=== PATIENT | male | born 1935 | race Two or more races ===

== ENCOUNTER 2021-06-09 15:06 | Inpatient (IN) | payer MEDICARE, OTHER ==
[~2021-06-09] VITALS: Ht 177.8 cm; Wt 64.1 kg
[~2021-06-09 15:06] MED LIST: CEFAZOLIN 1 G VIAL ONE; LIDOCAINE-MPF 2% 5 ML VIAL ONE; PROPOFOL 200 MG/20 ML BOTTLE ONE
[2021-06-09] MEDS ORDERED: IV NORMAL SALINE 500 ML BAG IV ONE (15:45)
[2021-06-09 16:01] LABS: HEMATOCRIT 53.7 % (36.7-47.1); MEAN CORPUSCULAR VOLUME 85.8 fL (73.0-96.2); PLATELET COUNT (AUTO) 233 K/uL (152-348)
[2021-06-09 16:22] LABS: ALANINE AMINOTRANSFERASE 13 U/L (16-63); ALKALINE PHOSPHATASE 83 U/L (50-136); ASPARTATE AMINOTRANSFERASE 6 U/L (15-37); BILIRUBIN,DIRECT 0.1 mg/dL (0.0-0.2); BILIRUBIN,TOTAL 0.4 mg/dL (0.2-1.0); CARBON DIOXIDE 19 mmol/L (21-32); CREATININE 6.9 mg/dL (0.6-1.3); GLUCOSE 227 mg/dL (74-106); TOTAL PROTEIN, SERUM 8.5 g/dL (6.4-8.2)
--- NOTE | 2021-06-09 16:26 | NUR ---
Per provider order, stopped NS fluids and changed to D5W @ 30mL/hr. Pt taken for CT scan via gurney by tech
[2021-06-09 16:28] LABS: CHLORIDE 133 mmol/L (98-107); UREA NITROGEN, BLOOD 191 mg/dL (7-18)
[2021-06-09] MEDS ORDERED: IV D5W 1000ML 1,000 ML IV PRN (16:30)
[2021-06-09] MEDS ORDERED: IV NORMAL SALINE 1000 ML BAG IV ONE (16:30)
[2021-06-09 17:39] LABS: *BILIRUBIN,URIN 1+ (NEGATIVE); *BLOOD, URINE 2+ (NEGATIVE); *CLARITY,URINE TURBID (CLEAR); *COLOR,URINE YELLOW (YELLOW); *KETONES,URINE 1+ (NEGATIVE); *UROBILINOGEN,URINE 0.2 E.U./dl (NORMAL); LEUKOCYTE ESTERASE ,URINE 3+ (NEGATIVE); NITRITE, URINE NEGATIVE (NEGATIVE); UGLUCOSE NEGATIVE (NEGATIVE)
--- NOTE | 2021-06-09 19:06 | NUR ---
Spoke with daughter, Juan Carlos. Gave update in status. Daughter agrees to pt's need to admit. Will give report for CCU bed.
--- NOTE | 2021-06-09 19:25 | NUR ---
Report given to AUDRA Ellis for pt transport to CCU bed 1. Will transport pt via [facility].
[2021-06-09 20:00] VITALS: BP 113/65
--- NOTE | 2021-06-09 20:00 | NUR ---
Received report from AUDRA Ferrell. Patient transported from ED and admitted to ICU-1 via gurney, without any incident and was transferred to hospital bed via draw sheet method. Patient came in with the Dx of Severe hypernatremia; awake, grimaces, responsive to stimuli. placed on bedside monitor, NSR, HR=98. No signs of pain nor distress noted. Placed on oxygen @ 2LPM, O2 sat 94%. LFA 20G patent and flushed with ongoing D5W @ 30mls/hr. Body assessment done. Belongings list checked and placed to chart. Belongings placed to belonging bag. Marroquin catheter draining well to gravity. Will continue to monitor closely. Addendum: 06/10/21 at 0017 by Rhonda Dowell RN Photos taken and placed to chart.
[2021-06-09 21:00] VITALS: BP 98/43
--- NOTE | 2021-06-09 21:00 | NUR ---
Daughter (Juan Carlos) called, report given.
--- NOTE | 2021-06-09 21:04 | NUR ---
I just charted the patient off the board
[2021-06-09] MEDS: IV D5W 1000ML 1,000 ML IV SCH (21:45)
[2021-06-09] MEDS: HEPARIN SODIUM,PORCINE 5,000 UNITS/ML VIAL SQ SCH (21:46)
[2021-06-09 22:00] VITALS: BP 113/60
--- NOTE | 2021-06-09 22:00 | NUR ---
Patient had a large BM, bed bath given, linen changed.
[2021-06-09] MEDS ORDERED: CEFTRIAXONE 1 G VIAL ONE (22:10)
[2021-06-09] MEDS ORDERED: ONDANSETRON 4 MG/2 ML VIAL IV PRN (22:30)
[2021-06-09] MEDS ORDERED: ACETAMINOPHEN 650 MG SUPP.RECT RC PRN (22:30)
[2021-06-09] MEDS: CEFTRIAXONE 1 G in IV DEXTROSE 5% 50 ML IV SCH (22:34)
[2021-06-09 23:00] VITALS: BP 88/59
[2021-06-09 23:23] LABS: BACTERIA,URINE MANY /HPF (NONE SEEN); RBC,URINE 20-50 /HPF (0-3); SQUAMOUS EPITHELIAL CELL,UR MODERATE /HPF (NONE SEEN); WBC,URINE TNTC /HPF (0-3)
[2021-06-09 23:46] LABS: CARBON DIOXIDE 17 mmol/L (21-32); CREATININE 7.2 mg/dL (0.6-1.3); GLUCOSE 266 mg/dL (74-106); POTASSIUM 5.2 mmol/L (3.5-5.1)
[2021-06-10] VITALS (24 sets, daily range): BP systolic 81–131; BP diastolic 40–76
[2021-06-10 00:02] LABS: CHLORIDE 132 mmol/L (98-107)
[2021-06-10 00:04] LABS: UREA NITROGEN, BLOOD 192 mg/dL (7-18)
--- NOTE | 2021-06-10 00:15 | NUR ---
Lab called and spoke with Bon for critical lab results. Called [facility] and spoke with Jose Patel DNP, report given, with no new orders.
[2021-06-10 06:18] LABS: HEMATOCRIT 56.4 % (36.7-47.1); MEAN CORPUSCULAR HEMOGLOBIN 28.2 uug (23.8-33.4); MEAN CORPUSCULAR VOLUME 88.1 fL (73.0-96.2); PLATELET COUNT (AUTO) 187 K/uL (152-348)
[2021-06-10 06:32] LABS: CARBON DIOXIDE 20 mmol/L (21-32); CHOLESTEROL 140 mg/dL (<200); CREATININE 6.7 mg/dL (0.6-1.3); HDL CHOLESTEROL 34 mg/dL (40-60); PHOSPHOROUS 5.7 mg/dL (2.5-4.9); POTASSIUM 4.5 mmol/L (3.5-5.1); TRIGLYCERIDES 251 MG/DL (30-150)
[2021-06-10 06:39] LABS: CHLORIDE 129 mmol/L (98-107); GLUCOSE 351 mg/dL (74-106)
[2021-06-10 06:40] LABS: UREA NITROGEN, BLOOD 193 mg/dL (7-18)
[2021-06-10] MEDS ORDERED: BLOOD SUGAR DIAGNOSTIC 1 EACH STRIP VI SCH ×2 (06:45→12:00)
--- NOTE | 2021-06-10 06:45 | NUR ---
Lab called and spoke with Bon for critical lab results. Called [facility] and spoke with Jose Patel DNP, report given, with new orders accucheck and insulin sliding scale. Noted and carried out.
--- NOTE | 2021-06-10 06:46 | NUR ---
Left patient asleep, resting comfortably. No signs of acute distress. VSS. LFA 20G with ongoing D5W @75mls/hr. Marroquin catheter draining well to gravity. Endorsed to next shift for continuity of care.
[2021-06-10] MEDS ORDERED: DEXTROSE 50% 50 ML DISP.SYRIN IV PRN ×2 (07:00→13:00)
[2021-06-10] MEDS ORDERED: INSULIN REGULAR, HUMAN 300 UNIT/3 ML VIAL SQ PRN (07:00)
--- NOTE | 2021-06-10 07:05 | NUR ---
Received pt. in bed lethargic responding only to painful stimuli by gargling and screaming. On nasal canula 2 liter wean off trial done at this time pt. with saturation of 100% on RA. no tachypnea. Hemodynamically stable on sinus rhythm with sbp above 90. Will continue to monitor.
[2021-06-10] MEDS: PANTOPRAZOLE SODIUM 40 MG VIAL IV SCH (08:18)
[2021-06-10] MEDS: HEPARIN SODIUM,PORCINE 5,000 UNITS/ML VIAL SQ SCH (08:24)
[2021-06-10] MEDS: IV D5W 1000ML 1,000 ML IV SCH (11:17)
[2021-06-10] MEDS ORDERED: ASPI-1420 PO (12:08)
[2021-06-10] MEDS ORDERED: DONE10TA44 PO (12:09)
[2021-06-10] MEDS ORDERED: PANT40TA49 PO (12:09)
[2021-06-10] MEDS ORDERED: MEMA10TA PO (12:10)
[2021-06-10] MEDS ORDERED: QUET25TA PO (12:11)
[2021-06-10] MEDS ORDERED: CLOP75TA15 PO (12:11)
[2021-06-10] MEDS ORDERED: FINA5TAB11 PO (12:12)
[2021-06-10] MEDS ORDERED: METO25TA6 PO (12:13)
[2021-06-10] MEDS ORDERED: ESCI5TAB PO (12:14)
[2021-06-10] MEDS ORDERED: TAMS-3 PO (12:15)
[2021-06-10] MEDS ORDERED: MIRA25TA PO (12:15)
[2021-06-10] MEDS ORDERED: ERGO500040 PO (12:17)
[2021-06-10] MEDS ORDERED: ALPR0.5T8 PO (12:18)
[2021-06-10] MEDS ORDERED: LINA72CA PO (12:18)
[2021-06-10] MEDS ORDERED: METF-494 PO (12:19)
[2021-06-10] MEDS ORDERED: LINA5TAB PO (12:20)
[2021-06-10] MEDS ORDERED: ROSU10TA2 GT (12:20)
[2021-06-10 12:38] LABS: *BILIRUBIN,URIN NEGATIVE (NEGATIVE); *BLOOD, URINE 3+ (NEGATIVE); *CLARITY,URINE TURBID (CLEAR); *COLOR,URINE YELLOW (YELLOW); *KETONES,URINE TRACE (NEGATIVE); *UROBILINOGEN,URINE 0.2 E.U./dl (NORMAL); LEUKOCYTE ESTERASE ,URINE 3+ (NEGATIVE); NITRITE, URINE POSITIVE (NEGATIVE); UGLUCOSE NEGATIVE (NEGATIVE)
[2021-06-10 13:26] LABS: CARBON DIOXIDE 19 mmol/L (21-32); CREATININE 5.8 mg/dL (0.6-1.3); POTASSIUM 3.5 mmol/L (3.5-5.1)
[2021-06-10 13:39] LABS: CHLORIDE 128 mmol/L (98-107); GLUCOSE 418 mg/dL (74-106); UREA NITROGEN, BLOOD 170 mg/dL (7-18)
[2021-06-10 16:20] LABS: *CREATININE,URINE 147.9 mg/dL (30-125); *URINE TOTAL PROTEIN RANDOM 384.2 mg/dL (<150/24HR)
--- NOTE | 2021-06-10 16:45 | NUR ---
Patient seen by attending Addy Marin.
[2021-06-10] MEDS: BLOOD SUGAR DIAGNOSTIC 1 EACH STRIP VI SCH (17:15)
[2021-06-10] MEDS: INSULIN REGULAR, HUMAN 300 UNIT/3 ML VIAL SQ PRN (17:17)
--- NOTE | 2021-06-10 17:45 | NUR ---
NG tube inserted to right left nare KUB for placement ordered.
[2021-06-10 18:56] LABS: BACTERIA,URINE MANY /HPF (NONE SEEN); RBC,URINE 20-50 /HPF (0-3); WBC,URINE 20-50 /HPF (0-3)
[2021-06-10 18:57] LABS: SQUAMOUS EPITHELIAL CELL,UR FEW /HPF (NONE SEEN)
--- NOTE | 2021-06-10 19:30 | NUR ---
Report received. Spoke to radiology re: abdominal xray for NGT placement; awaiting result. Patient admitted 06/09/2021 DX: Severe hypernatremia. Doesn't open eyes to name, aphasic, moans and groans but no appropriate responses to questions. Withdraws extremities to pain, mildly rigid. EKG: SR with BBB and rare PACs. On room air; o2 sats 100%. NAD noted.
--- NOTE | 2021-06-10 20:20 | NUR ---
Kristie Donato REFRIGERATOR GLAZIER notified of X ray result re: NGT placement. Okay to use.
--- NOTE | 2021-06-10 20:30 | NUR ---
Son visited; updated of patient's condition.
[2021-06-10] MEDS: ATORVASTATIN 20 MG TABLET PO SCH (21:04)
[2021-06-10] MEDS: TAMSULOSIN HCL 0.4 MG CAP.SR.24H PO SCH (21:04)
[2021-06-10] MEDS: FINASTERIDE 5 MG TABLET PO SCH (21:05)
[2021-06-10] MEDS: CLOPIDOGREL 75 MG TABLET PO SCH (21:18)
[2021-06-10] MEDS: CEFTRIAXONE 1 G in IV DEXTROSE 5% 50 ML IV SCH (21:19)
[2021-06-10] MEDS ORDERED: DONEPEZIL 5 MG TABLET ONE (21:45)
[2021-06-10] MEDS ORDERED: MEMANTINE HCL 10 MG TABLET ONE (21:59)
[2021-06-10] MEDS: DONEPEZIL 10 MG TABLET PO SCH (22:05)
[2021-06-10] MEDS: MEMANTINE HCL 10 MG TABLET PO SCH (22:07)
[2021-06-11] VITALS (24 sets, daily range): BP systolic 89–120; BP diastolic 35–78
[2021-06-11] MEDS: IV D5W 1000ML 1,000 ML IV SCH ×3 (00:02→23:29)
[2021-06-11] MEDS: BLOOD SUGAR DIAGNOSTIC 1 EACH STRIP VI SCH ×5 (00:08→23:27)
[2021-06-11] MEDS: INSULIN REGULAR, HUMAN 300 UNIT/3 ML VIAL SQ PRN ×5 (00:09→23:27)
[2021-06-11 06:19] LABS: HEMATOCRIT 48.1 % (36.7-47.1); MEAN CORPUSCULAR HEMOGLOBIN 27.5 uug (23.8-33.4); MEAN CORPUSCULAR VOLUME 85.2 fL (73.0-96.2); PLATELET COUNT (AUTO) 179 K/uL (152-348)
--- NOTE | 2021-06-11 06:38 | NUR ---
VS stable. No neuro changes. Still no appropriate verbal responses. O2 saturations on room air 97-100%. Urine gygitj=212mw x 12H. Addendum: 06/11/21 at 0638 by RADHA BARNETT RN Amended: Links added.
[2021-06-11 06:41] LABS: ALANINE AMINOTRANSFERASE 6 U/L (16-63); ALKALINE PHOSPHATASE 81 U/L (50-136); ASPARTATE AMINOTRANSFERASE 7 U/L (15-37); BILIRUBIN,TOTAL 0.4 mg/dL (0.2-1.0); CARBON DIOXIDE 21 mmol/L (21-32); CHLORIDE 124 mmol/L (98-107); CREATINE KINASE, TOTAL 97 U/L (39-308); CREATININE 5.8 mg/dL (0.6-1.3); GLUCOSE 295 mg/dL (74-106); MAGNESIUM 2.6 mg/dL (1.8-2.4); PHOSPHOROUS 4.8 mg/dL (2.5-4.9); POTASSIUM 3.7 mmol/L (3.5-5.1); TOTAL PROTEIN, SERUM 7.3 g/dL (6.4-8.2)
[2021-06-11 06:46] LABS: UREA NITROGEN, BLOOD 167 mg/dL (7-18)
--- NOTE | 2021-06-11 07:00 | NUR ---
Receive pt. lethargic responsive only to deep painful-stimuli. Hemodynamically stable Sinus rhythm on the monitor. sbp sustained with no need of vasopressors. On room air with saturation above 95%. no tachypnea or any other distress. IV line patent and fluid infusing. Will continue to monitor.
[2021-06-11 07:13] LABS: URIC ACID 12.3 mg/dL (3.5-7.2)
[2021-06-11] MEDS: DONEPEZIL 10 MG TABLET PO SCH (08:17)
[2021-06-11] MEDS: MEMANTINE HCL 10 MG TABLET PO SCH ×2 (08:17→17:25)
[2021-06-11] MEDS: ASPIRIN EC 81 MG TABLET.DR PO SCH (08:19)
[2021-06-11] MEDS: FINASTERIDE 5 MG TABLET PO SCH (08:19)
[2021-06-11] MEDS: PANTOPRAZOLE SODIUM 40 MG VIAL IV SCH (08:19)
[2021-06-11] MEDS: CLOPIDOGREL 75 MG TABLET PO SCH (08:19)
[2021-06-11] MEDS: TAMSULOSIN HCL 0.4 MG CAP.SR.24H PO SCH ×2 (08:19→17:27)
[2021-06-11 08:36] LABS: THYROID STIMULATING HORMONE 0.645 mIU/mL (0.358-3.740)
--- NOTE | 2021-06-11 13:18 | NUR ---
Attending Arnaldo in the unit to see and examine pt. report given orders received and implemented.
--- NOTE | 2021-06-11 19:00 | NUR ---
Received patient asleep, moans and groans, responsive to painful stimuli, does not open eyes to name. RA with O2 aky=692%. No signs of acute distress noted. NG tube patent, no gastric residual noted. LAC 20G patent and flushed with ongoing D5W @ 75mls/hr. No erythema bleeding or infiltration noted. Marroquin catheter draining well to gravity. Placed on 1st step mattress. Bed at lowest position, bed alarm on, siderails x2. Call light within reach. Will continue to monitor closely.
[2021-06-11] MEDS: ATORVASTATIN 20 MG TABLET PO SCH (21:01)
[2021-06-11] MEDS: CEFTRIAXONE 1 G in IV DEXTROSE 5% 50 ML IV SCH (21:02)
--- NOTE | 2021-06-11 22:30 | NUR ---
Midline insertion done c/o Duane BELTRE. Per Duane BELTRE, ok to use and draw from midline.
[2021-06-12] VITALS (16 sets, daily range): BP systolic 94–145; BP diastolic 42–89
[2021-06-12 05:11] LABS: CARBON DIOXIDE 22 mmol/L (21-32); CHLORIDE 116 mmol/L (98-107); CREATININE 4.6 mg/dL (0.6-1.3); GLUCOSE 258 mg/dL (74-106); MAGNESIUM 2.2 mg/dL (1.8-2.4); PHOSPHOROUS 4.2 mg/dL (2.5-4.9)
[2021-06-12 05:13] LABS: UREA NITROGEN, BLOOD 148 mg/dL (7-18)
[2021-06-12 05:19] LABS: HEMATOCRIT 40.3 % (36.7-47.1); MEAN CORPUSCULAR HEMOGLOBIN 27.7 uug (23.8-33.4); MEAN CORPUSCULAR VOLUME 83.8 fL (73.0-96.2); PLATELET COUNT (AUTO) 163 K/uL (152-348)
[2021-06-12] MEDS: BLOOD SUGAR DIAGNOSTIC 1 EACH STRIP VI SCH ×4 (06:14→23:11)
[2021-06-12] MEDS: INSULIN REGULAR, HUMAN 300 UNIT/3 ML VIAL SQ PRN ×4 (06:17→23:14)
--- NOTE | 2021-06-12 07:01 | NUR ---
Left patient asleep, arousable to name, guarded. NAD noted. On RA. BRYANNA ML with ongoing D5W @ 100mls/hr, LAC 20G SL. Marroquin catheter draining well to gravity. VSS. Endorsed to next shift nurse for continuity of care.
--- NOTE | 2021-06-12 07:31 | NUR ---
Received pt. in bed in deep sleep arousable only to deep painful stimuli. pt moaning and gargly unclear sound only. On room air with saturation of 100%. NSR with SBP within normal limits. Marroquin to gravity. ML BRYANNA patent. Will continue to monitor.
[2021-06-12] MEDS: PANTOPRAZOLE SODIUM 40 MG VIAL IV SCH (08:27)
[2021-06-12] MEDS: CLOPIDOGREL 75 MG TABLET PO SCH (08:27)
[2021-06-12] MEDS: ASPIRIN EC 81 MG TABLET.DR PO SCH (08:27)
[2021-06-12] MEDS: FINASTERIDE 5 MG TABLET PO SCH (08:27)
[2021-06-12] MEDS: TAMSULOSIN HCL 0.4 MG CAP.SR.24H PO SCH ×2 (08:27→17:50)
[2021-06-12] MEDS: DONEPEZIL 10 MG TABLET PO SCH (08:28)
[2021-06-12] MEDS: MEMANTINE HCL 5 MG TABLET PO SCH ×2 (08:31→17:50)
[2021-06-12] MEDS: IV D5W 1000ML 1,000 ML IV SCH (09:25)
[2021-06-12] MEDS: GLUCERNA 1.2 1000ML LIQUID GT PRN (10:50)
--- NOTE | 2021-06-12 12:03 | NUR ---
WOUND CARE CONSULT: PT PRESENTS WITH SACRAL DIMPLE AND RT HEEL INTACT DEEP TISSUE INJURY, PRESENT ON ADMISSION. RECOMMENDATIONS MADE FOR SKIN PROTECTION. DISCUSSED WITH NURSING STAFF. IN AGREEMENT WITH PLAN OF CARE. Addendum: 06/12/21 at 1204 by ERIN PROCTOR RN Amended: Links added.
[2021-06-12] MEDS ORDERED: DEXTROSE 50% 50 ML DISP.SYRIN IV PRN (14:00)
--- NOTE | 2021-06-12 14:10 | NUR ---
Attending VALENTIN Donato in the unit to see and examine pt. report given see order hx.
[2021-06-12 16:06] LABS: A/G RATIO 0.9 (0.7-1.7); ALPHA-1-GLOBULIN 0.3 g/dL (0.0-0.4); ALPHA-2-GLOBULIN 0.7 g/dL (0.4-1.0); BETA GLOBULIN 1.1 g/dL (0.7-1.3); GAMMA GLOBULIN 1.2 g/dL (0.4-1.8); GLOBULIN, TOTAL 3.3 g/dL (2.2-3.9); M-SPIKE Not Observed g/dL (Not Observed)
[2021-06-12] MEDS: ATORVASTATIN 20 MG TABLET PO SCH (20:20)
[2021-06-12] MEDS: CEFAZOLIN 1 G in IV DEXTROSE 5% 50 ML IV SCH (20:20)
[2021-06-13 00:03] VITALS: BP 109/57
[2021-06-13 04:09] VITALS: BP 111/76
[2021-06-13] MEDS: BLOOD SUGAR DIAGNOSTIC 1 EACH STRIP VI SCH ×3 (05:27→17:26)
[2021-06-13] MEDS: INSULIN REGULAR, HUMAN 300 UNIT/3 ML VIAL SQ PRN ×3 (05:29→17:35)
--- NOTE | 2021-06-13 06:17 | NUR ---
END OF SHIFT REPORT patient now more alert; tolerated NGT feeding; no residual; accucheck as charted; son at bedside last night; updates given; incontinence care rendered; safety maintained. continue plan of care.
[2021-06-13 06:41] LABS: HEMATOCRIT 39.1 % (36.7-47.1); MEAN CORPUSCULAR HEMOGLOBIN 27.6 uug (23.8-33.4); MEAN CORPUSCULAR VOLUME 82.4 fL (73.0-96.2); PLATELET COUNT (AUTO) 152 K/uL (152-348)
[2021-06-13 06:55] LABS: CARBON DIOXIDE 21 mmol/L (21-32); CHLORIDE 113 mmol/L (98-107); CREATININE 3.8 mg/dL (0.6-1.3); GLUCOSE 204 mg/dL (74-106); MAGNESIUM 2.1 mg/dL (1.8-2.4); PHOSPHOROUS 4.6 mg/dL (2.5-4.9); POTASSIUM 3.5 mmol/L (3.5-5.1)
--- NOTE | 2021-06-13 08:00 | NUR ---
Aspiration precaution implemented. Turn pt q 2 hrs implemented. F/c draining clear yellow urine . IV site intact. Call light is within reach.
[2021-06-13] MEDS: ASPIRIN EC 81 MG TABLET.DR PO SCH (09:08)
[2021-06-13] MEDS: FINASTERIDE 5 MG TABLET PO SCH (09:08)
[2021-06-13] MEDS: MEMANTINE HCL 5 MG TABLET PO SCH ×2 (09:08→17:26)
[2021-06-13] MEDS: TAMSULOSIN HCL 0.4 MG CAP.SR.24H PO SCH ×2 (09:08→17:26)
[2021-06-13] MEDS: CLOPIDOGREL 75 MG TABLET PO SCH (09:08)
[2021-06-13] MEDS: PANTOPRAZOLE SODIUM 40 MG VIAL IV SCH (09:08)
[2021-06-13] MEDS: DONEPEZIL 10 MG TABLET PO SCH (09:11)
[2021-06-13] MEDS: CEFAZOLIN 1 G in IV DEXTROSE 5% 50 ML IV SCH ×2 (09:11→20:50)
[2021-06-13 09:16] LABS: UREA NITROGEN, BLOOD 119 mg/dL (7-18)
--- NOTE | 2021-06-13 10:00 | NUR ---
Physical therapy saw patient. pt unable to participate in therapy.
[2021-06-13 12:00] VITALS: BP 115/52
[2021-06-13 16:00] VITALS: BP 100/55
--- NOTE | 2021-06-13 16:00 | NUR ---
Called gretta to get consent for EGD with PEG. Per gretta she doesnt want to have her father get the G-TUBe. emerald GARIBAY and GAVINO DENNIS notified of familys wishes.
--- NOTE | 2021-06-13 20:45 | NUR ---
PATIENT ASLEEP BUT AROUSABLE NO SOB NO CHEST PAIN, PATIENT ON TELE MONITOR SINUS RHYTHM AT THIS TIME, PATIENT ON NGT TOLERATE WELL NO RESIDUAL NOTED, CHECKED FOR PLACEMENT, PATIENT HAS NO CONGESTION NOTED, TURNED AND REPOSITION, NO S/S OF PAIN. CONT TO MONITOR.
[2021-06-13] MEDS: ATORVASTATIN 20 MG TABLET PO SCH (20:51)
[2021-06-13 20:58] VITALS: BP 99/58
--- NOTE | 2021-06-14 | NUR ---
PATIENT HAS AN ORDER FOR EGD, AND NPO AFTER MIDNIGHT. PATIENT HAS NO S/S OF PAIN OR DISCOMFORT, RENDERED GOOD ORAL CARE, CHAVEZ CATH PATENT DRAINING WELL, CONT TO MONITOR.
[2021-06-14 00:29] VITALS: BP 103/53
[2021-06-14] MEDS: BLOOD SUGAR DIAGNOSTIC 1 EACH STRIP VI SCH ×5 (00:51→23:55)
[2021-06-14] MEDS: INSULIN REGULAR, HUMAN 300 UNIT/3 ML VIAL SQ PRN ×5 (00:58→23:57)
[2021-06-14] MEDS: Z GUARD REMEDY PASTE 57 GM TUBE TOP PRN (00:58)
[2021-06-14 04:23] VITALS: BP 136/72
--- NOTE | 2021-06-14 05:49 | NUR ---
PATIENT EYES OPEN, NO SOB NO CHEST PAIN NOTED, TELE MONITOR SINUS RHYTHM, PATIENT ON NGT TOLERATE WELL NO RESIDUAL, NO CONGESTION, NO DIARRHEA NOTED, KEPT HOB ELEVATED, TURN AND REPOSITION, V/S STABLE, V/S STABLE
[2021-06-14] MEDS: PANTOPRAZOLE ORAL SUSPENSION 40 MG SUSPDR.PKT GT SCH (06:04)
[2021-06-14 07:19] LABS: HEMATOCRIT 37.2 % (36.7-47.1); MEAN CORPUSCULAR HEMOGLOBIN 27.8 uug (23.8-33.4); MEAN CORPUSCULAR VOLUME 82.1 fL (73.0-96.2); PLATELET COUNT (AUTO) 148 K/uL (152-348)
[2021-06-14 07:37] LABS: CARBON DIOXIDE 23 mmol/L (21-32); CHLORIDE 115 mmol/L (98-107); CREATININE 3.3 mg/dL (0.6-1.3); GLUCOSE 163 mg/dL (74-106); MAGNESIUM 2.1 mg/dL (1.8-2.4); PHOSPHOROUS 4.2 mg/dL (2.5-4.9); POTASSIUM 3.6 mmol/L (3.5-5.1)
[2021-06-14 07:40] LABS: UREA NITROGEN, BLOOD 110 mg/dL (7-18)
[2021-06-14] MEDS: CLOPIDOGREL 75 MG TABLET PO SCH (08:47)
[2021-06-14] MEDS: ASPIRIN EC 81 MG TABLET.DR PO SCH (08:47)
[2021-06-14] MEDS: DONEPEZIL 10 MG TABLET PO SCH (08:47)
[2021-06-14] MEDS: CEFAZOLIN 1 G in IV DEXTROSE 5% 50 ML IV SCH ×2 (08:47→21:35)
[2021-06-14] MEDS: MEMANTINE HCL 5 MG TABLET PO SCH ×2 (08:47→16:30)
[2021-06-14] MEDS: TAMSULOSIN HCL 0.4 MG CAP.SR.24H PO SCH ×2 (08:47→16:30)
[2021-06-14] MEDS: FINASTERIDE 5 MG TABLET PO SCH (09:32)
[2021-06-14] MEDS: GLUCERNA 1.2 1000ML LIQUID GT PRN (11:55)
--- NOTE | 2021-06-14 11:56 | NUR ---
informed Dr Schmitz regarding feeding, order to continue with feeding. PEG placement is still pending. Will continue to monitor. NGT intact, placement check.
[2021-06-14 12:00] VITALS: BP 120/65
[2021-06-14 15:44] VITALS: BP 112/72
[2021-06-14 20:00] VITALS: BP 98/59
[2021-06-14] MEDS: ATORVASTATIN 20 MG TABLET PO SCH (21:35)
[2021-06-15 04:00] VITALS: BP 108/67
[2021-06-15] MEDS: BLOOD SUGAR DIAGNOSTIC 1 EACH STRIP VI SCH ×3 (05:30→18:19)
[2021-06-15] MEDS: PANTOPRAZOLE ORAL SUSPENSION 40 MG SUSPDR.PKT GT SCH (05:30)
[2021-06-15] MEDS: INSULIN REGULAR, HUMAN 300 UNIT/3 ML VIAL SQ PRN ×2 (05:33→12:10)
--- NOTE | 2021-06-15 06:31 | NUR ---
Patient remained stable during the shift. No distress identified. No pain or discomfort noted. All due meds given, all needs attended. Kept call light within reach. oral care done. Safety measures maintained. Will endorse for continuity of care.
[2021-06-15 06:36] LABS: HEMATOCRIT 39.2 % (36.7-47.1); MEAN CORPUSCULAR HEMOGLOBIN 27.7 uug (23.8-33.4); MEAN CORPUSCULAR VOLUME 82.6 fL (73.0-96.2); PLATELET COUNT (AUTO) 178 K/uL (152-348)
[2021-06-15 07:05] LABS: CARBON DIOXIDE 23 mmol/L (21-32); CHLORIDE 116 mmol/L (98-107); CREATININE 2.9 mg/dL (0.6-1.3); GLUCOSE 239 mg/dL (74-106); MAGNESIUM 2.4 mg/dL (1.8-2.4); PHOSPHOROUS 3.1 mg/dL (2.5-4.9)
[2021-06-15 07:44] LABS: UREA NITROGEN, BLOOD 97 mg/dL (7-18)
[2021-06-15] MEDS: MEMANTINE HCL 5 MG TABLET PO SCH ×2 (09:14→17:36)
[2021-06-15] MEDS: FINASTERIDE 5 MG TABLET PO SCH (09:14)
[2021-06-15] MEDS: CEFAZOLIN 1 G in IV DEXTROSE 5% 50 ML IV SCH ×2 (09:14→20:22)
[2021-06-15] MEDS: DONEPEZIL 10 MG TABLET PO SCH (09:14)
[2021-06-15] MEDS: CLOPIDOGREL 75 MG TABLET PO SCH (09:15)
[2021-06-15] MEDS: ASPIRIN EC 81 MG TABLET.DR PO SCH (09:15)
[2021-06-15] MEDS: TAMSULOSIN HCL 0.4 MG CAP.SR.24H PO SCH ×2 (09:15→17:36)
[2021-06-15 11:48] VITALS: BP 142/76
[2021-06-15] MEDS: GLUCERNA 1.2 1000ML LIQUID GT PRN (13:23)
[2021-06-15 16:00] VITALS: BP 104/59
[2021-06-15 20:00] VITALS: BP 100/53
[2021-06-15] MEDS: ATORVASTATIN 20 MG TABLET PO SCH (20:22)
[2021-06-16] MEDS: INSULIN REGULAR, HUMAN 300 UNIT/3 ML VIAL SQ PRN ×3 (00:04→12:42)
[2021-06-16 04:00] VITALS: BP 104/68
[2021-06-16] MEDS: PANTOPRAZOLE ORAL SUSPENSION 40 MG SUSPDR.PKT GT SCH (06:17)
[2021-06-16] MEDS: BLOOD SUGAR DIAGNOSTIC 1 EACH STRIP VI SCH ×4 (06:26→17:42)
--- NOTE | 2021-06-16 06:59 | NUR ---
Pt remains AOx1. Has response to touch. Glucerna feeding through NG tube running at 50cc, no residual. 200cc of water flushed Q4 hours as ordered. No distress noted. Marroquin draining clear yellow urine. Safety and comfort provided. Will endorse to day shift.
[2021-06-16 07:03] LABS: HEMATOCRIT 35.6 % (36.7-47.1); MEAN CORPUSCULAR HEMOGLOBIN 27.8 uug (23.8-33.4); MEAN CORPUSCULAR VOLUME 82.4 fL (73.0-96.2); PLATELET COUNT (AUTO) 175 K/uL (152-348)
[2021-06-16 07:32] LABS: CARBON DIOXIDE 22 mmol/L (21-32); CHLORIDE 115 mmol/L (98-107); CREATININE 2.4 mg/dL (0.6-1.3); GLUCOSE 182 mg/dL (74-106); MAGNESIUM 2.1 mg/dL (1.8-2.4); PHOSPHOROUS 3.3 mg/dL (2.5-4.9); POTASSIUM 3.8 mmol/L (3.5-5.1)
[2021-06-16 07:35] LABS: UREA NITROGEN, BLOOD 80 mg/dL (7-18)
[2021-06-16] MEDS: CEFAZOLIN 1 G in IV DEXTROSE 5% 50 ML IV SCH ×2 (08:59→21:03)
[2021-06-16] MEDS: ASPIRIN EC 81 MG TABLET.DR PO SCH (09:00)
[2021-06-16] MEDS: MEMANTINE HCL 5 MG TABLET PO SCH ×2 (09:00→17:42)
[2021-06-16] MEDS: DONEPEZIL 10 MG TABLET PO SCH (09:00)
[2021-06-16] MEDS: TAMSULOSIN HCL 0.4 MG CAP.SR.24H PO SCH ×2 (09:00→17:42)
[2021-06-16] MEDS: FINASTERIDE 5 MG TABLET PO SCH (09:00)
[2021-06-16] MEDS: CLOPIDOGREL 75 MG TABLET PO SCH (09:01)
--- NOTE | 2021-06-16 10:49 | NUR ---
Social Work APS Report Protective Services Report (Intake ID [id number]) was submitted on 06/16/2021 at 10:47 AM. A copy has been placed in patient's chart.
[2021-06-16 12:22] VITALS: BP 109/64
--- NOTE | 2021-06-16 14:07 | NUR ---
Clinical Social Work Note SW consult was request for assistance with DPOA. SW did not meet with patient as patient is unresponsive. DENYS spoke with patients daughter Juan Carlos Fierro ([phone]) who stated that she was confused because she was not interested in setting up a DPOA. Juan Carlos stated that currently her father does not have a DPOA, but she is his legal guardian. Juan Carlos stated that she did not need assistance at the moment.
[2021-06-16 16:17] VITALS: BP 113/79
--- NOTE | 2021-06-16 16:25 | NUR ---
Pt resting in bed comfortably ,remains ALOX1.No SOB .On O2 at 2LPm via NC.HOB elevated.Aspiration precaution observed at all times.Continue on Glucerna feeding through NG tube running at 50cc, no residual. Tolerated well.200cc of water flushed Q4 hours as ordered. Midline on rt upper arm patent and intact.Marroquin draining well clear yellow urine.Will continue to monitor.
[2021-06-16 20:00] VITALS: BP 121/70
[2021-06-16] MEDS: ATORVASTATIN 20 MG TABLET PO SCH (21:03)
[2021-06-17] MEDS: BLOOD SUGAR DIAGNOSTIC 1 EACH STRIP VI SCH ×4 (00:25→18:08)
[2021-06-17] MEDS: INSULIN REGULAR, HUMAN 300 UNIT/3 ML VIAL SQ PRN ×4 (00:32→18:07)
[2021-06-17] MEDS: PANTOPRAZOLE ORAL SUSPENSION 40 MG SUSPDR.PKT GT SCH (06:12)
--- NOTE | 2021-06-17 07:15 | NUR ---
Received patient asleep in bed. On 2L O2 via NC. No signs of acute distress. NG tube on right nare, feeding running at 50cc/hr. Midline on BRYANNA patent and intact. Marroquin catheter draining clear, yellow urine. Will continue to monitor.
[2021-06-17 08:50] LABS: HEMATOCRIT 37.6 % (36.7-47.1); MEAN CORPUSCULAR VOLUME 82.6 fL (73.0-96.2); PLATELET COUNT (AUTO) 189 K/uL (152-348)
[2021-06-17] MEDS: ASPIRIN EC 81 MG TABLET.DR PO SCH (09:04)
[2021-06-17] MEDS: CLOPIDOGREL 75 MG TABLET PO SCH (09:04)
[2021-06-17] MEDS: DONEPEZIL 10 MG TABLET PO SCH (09:04)
[2021-06-17] MEDS: CEFAZOLIN 1 G in IV DEXTROSE 5% 50 ML IV SCH ×2 (09:04→20:57)
[2021-06-17] MEDS: MEMANTINE HCL 5 MG TABLET PO SCH ×2 (09:04→16:11)
[2021-06-17] MEDS: TAMSULOSIN HCL 0.4 MG CAP.SR.24H PO SCH ×2 (09:05→16:12)
[2021-06-17] MEDS: FINASTERIDE 5 MG TABLET PO SCH (09:05)
[2021-06-17 09:31] LABS: CARBON DIOXIDE 23 mmol/L (21-32); CHLORIDE 114 mmol/L (98-107); CREATININE 2.2 mg/dL (0.6-1.3); GLUCOSE 195 mg/dL (74-106); MAGNESIUM 2.3 mg/dL (1.8-2.4); PHOSPHOROUS 3.3 mg/dL (2.5-4.9); POTASSIUM 3.9 mmol/L (3.5-5.1); UREA NITROGEN, BLOOD 67 mg/dL (7-18)
[2021-06-17 12:00] VITALS: BP 122/64
[2021-06-17 16:08] VITALS: BP 110/61
--- NOTE | 2021-06-17 18:17 | NUR ---
Patient resting comfortably. Responds to touch. On room air. No signs of acute distress. NG Tube on right nare, tube feeding running at 50cc/hr. Patient kept clean and comfortable, turned and repositioned q2h. Marroquin catheter draining clear, yellow urine. BRYANNA midline patent and intact. Medications given and patient tolerated well. Wound care treatment done as ordered. Will endorse to incoming shift for continuity of care.
[2021-06-17 20:06] VITALS: BP 109/61
[2021-06-17] MEDS: ATORVASTATIN 20 MG TABLET PO SCH (20:57)
[2021-06-18 00:03] VITALS: BP 138/73
[2021-06-18] MEDS: BLOOD SUGAR DIAGNOSTIC 1 EACH STRIP VI SCH ×5 (00:21→23:42)
[2021-06-18] MEDS: INSULIN REGULAR, HUMAN 300 UNIT/3 ML VIAL SQ PRN ×5 (00:26→23:42)
[2021-06-18] MEDS: GLUCERNA 1.2 1000ML LIQUID GT PRN (02:47)
[2021-06-18 04:09] VITALS: BP 134/71
[2021-06-18] MEDS: PANTOPRAZOLE ORAL SUSPENSION 40 MG SUSPDR.PKT GT SCH (05:41)
--- NOTE | 2021-06-18 07:15 | NUR ---
Patient resting comfortable. On room air. No signs of acute distress. NG tube on right nare, tube feeding running at 50cc/hr. Marroquin catheter draining clear, yellow urine. BRYANNA midline patent and intact. Bed alarm on. Will continue to monitor.
[2021-06-18 08:34] LABS: HEMATOCRIT 33.9 % (36.7-47.1); MEAN CORPUSCULAR HEMOGLOBIN 28.3 uug (23.8-33.4); MEAN CORPUSCULAR VOLUME 82.5 fL (73.0-96.2); PLATELET COUNT (AUTO) 213 K/uL (152-348)
[2021-06-18 09:02] LABS: CARBON DIOXIDE 25 mmol/L (21-32); CHLORIDE 114 mmol/L (98-107); CREATININE 1.8 mg/dL (0.6-1.3); GLUCOSE 130 mg/dL (74-106); MAGNESIUM 2.1 mg/dL (1.8-2.4); PHOSPHOROUS 3.6 mg/dL (2.5-4.9); POTASSIUM 3.9 mmol/L (3.5-5.1); UREA NITROGEN, BLOOD 57 mg/dL (7-18)
[2021-06-18] MEDS: MEMANTINE HCL 5 MG TABLET PO SCH ×2 (09:06→17:21)
[2021-06-18] MEDS: CLOPIDOGREL 75 MG TABLET PO SCH (09:06)
[2021-06-18] MEDS: TAMSULOSIN HCL 0.4 MG CAP.SR.24H PO SCH ×2 (09:06→17:21)
[2021-06-18] MEDS: DONEPEZIL 10 MG TABLET PO SCH (09:06)
[2021-06-18] MEDS: FINASTERIDE 5 MG TABLET PO SCH (09:06)
[2021-06-18] MEDS: CEFAZOLIN 1 G in IV DEXTROSE 5% 50 ML IV SCH ×2 (09:07→20:51)
[2021-06-18] MEDS: ASPIRIN EC 81 MG TABLET.DR PO SCH (09:07)
[2021-06-18 12:00] VITALS: BP 123/64
[2021-06-18 16:00] VITALS: BP 125/62
[2021-06-18 20:00] VITALS: BP 115/62
[2021-06-18] MEDS: ATORVASTATIN 20 MG TABLET PO SCH (20:51)
[2021-06-18] MEDS: IV D5W 1000ML 1,000 ML IV PRN (23:22)
[2021-06-19 04:18] VITALS: BP 116/66
[2021-06-19] MEDS: PANTOPRAZOLE ORAL SUSPENSION 40 MG SUSPDR.PKT GT SCH (05:40)
[2021-06-19] MEDS: BLOOD SUGAR DIAGNOSTIC 1 EACH STRIP VI SCH ×4 (05:48→23:55)
[2021-06-19] MEDS: INSULIN REGULAR, HUMAN 300 UNIT/3 ML VIAL SQ PRN ×4 (05:50→23:56)
--- NOTE | 2021-06-19 06:39 | NUR ---
Pt slept throughout the night. On room air saturating at 100%. Arousable to touch. Head of bed kept elevated. Repositioned Q2H. NPO status. NG tube in right nares intact. Glucerna 1.2 running at 50cc, tolerating well. Free flush NG tube Q4H. BRYANNA midline running D5W at 50mls/hr. F/C intact, draining well. Clear, yellow color, no foul odor. 2 Medium soft brown BM. No signs of acute distress. Call lights within reach, safety measures maintained. Will endorse to am shift.
[2021-06-19 06:54] LABS: HEMATOCRIT 34.1 % (36.7-47.1); MEAN CORPUSCULAR HEMOGLOBIN 27.8 uug (23.8-33.4); MEAN CORPUSCULAR VOLUME 82.8 fL (73.0-96.2); PLATELET COUNT (AUTO) 204 K/uL (152-348)
[2021-06-19 07:10] LABS: CARBON DIOXIDE 27 mmol/L (21-32); CHLORIDE 112 mmol/L (98-107); CREATININE 1.7 mg/dL (0.6-1.3); GLUCOSE 222 mg/dL (74-106); PHOSPHOROUS 3.9 mg/dL (2.5-4.9); POTASSIUM 4.7 mmol/L (3.5-5.1); UREA NITROGEN, BLOOD 48 mg/dL (7-18)
[2021-06-19] MEDS: CEFAZOLIN 1 G in IV DEXTROSE 5% 50 ML IV SCH ×2 (08:45→20:38)
[2021-06-19] MEDS: TAMSULOSIN HCL 0.4 MG CAP.SR.24H PO SCH ×2 (08:46→18:47)
[2021-06-19] MEDS: CLOPIDOGREL 75 MG TABLET PO SCH (08:46)
[2021-06-19] MEDS: MEMANTINE HCL 5 MG TABLET PO SCH ×2 (08:46→18:47)
[2021-06-19] MEDS: DONEPEZIL 10 MG TABLET PO SCH (08:46)
[2021-06-19] MEDS: ASPIRIN EC 81 MG TABLET.DR PO SCH (08:46)
[2021-06-19] MEDS: FINASTERIDE 5 MG TABLET PO SCH (08:46)
[2021-06-19 11:22] VITALS: BP 114/66
[2021-06-19 11:30] VITALS: BP 114/66
--- NOTE | 2021-06-19 13:00 | NUR ---
Medical Release Request was sent to [facility] and [facility] medical records. Received fax confirmation. Addendum: 06/19/21 at 1640 by OZIEL STONE RN Incorrect information entered
[2021-06-19 15:13] VITALS: BP 126/67
--- NOTE | 2021-06-19 18:01 | NUR ---
Pt was comfortable t/o shift. Remains non verbal. However, arousable to touch. On room air saturating at 100%. Head of bed kept elevated. Repositioned Q2H. Foam dressing changed on bilateral heels. NPO status. Will endorse to turn off feeding once we know the time of the surgery for peg tube placement with Dr. Chew. NG tube in right nares intact. Glucerna 1.2 running at 50cc, tolerating well. Free flush NG tube Q4H. BRYANNA midline running IVF at 50mls/hr. F/C intact, draining Clear, yellow color, no foul odor urine. BM x1. Call lights within reach. Safety and comfort measures maintained t/o shift. Vital signs stable.
--- NOTE | 2021-06-19 19:08 | NUR ---
Left message for family regarding to expect a call from Anesthesia tomorrow at around 11:00 to discuss procedure. Will endorse to PM RN.
--- NOTE | 2021-06-19 19:30 | NUR ---
Received patient in bed. Son at bedside. NGT feeding infusing at 50cc/ hr, patiet tolerates feeding well. D5w at 50cc/hr via right upper arm midline is intact. Patient is easily arousable by touch, non verbal, only moans at touch. HOB up for aspiration precautions. Patient is extensive care. Will have PEG tube placement at noon tomorrow. Son is aware. Request for MD to ADRIANNA nolasco and jaqueline- will endorse to am. Safety measures initiated. Call light within reach.
[2021-06-19 20:00] VITALS: BP 122/76
[2021-06-19] MEDS: ATORVASTATIN 20 MG TABLET PO SCH (20:38)
--- NOTE | 2021-06-20 | NUR ---
Tube feeding turned off, patient is NPO for surgery.
[2021-06-20 04:00] VITALS: BP 120/75
[2021-06-20] MEDS: PANTOPRAZOLE ORAL SUSPENSION 40 MG SUSPDR.PKT GT SCH (06:00)
[2021-06-20] MEDS: BLOOD SUGAR DIAGNOSTIC 1 EACH STRIP VI SCH ×3 (06:08→17:34)
[2021-06-20] MEDS: Z GUARD REMEDY PASTE 57 GM TUBE TOP PRN (06:08)
[2021-06-20] MEDS: INSULIN REGULAR, HUMAN 300 UNIT/3 ML VIAL SQ PRN ×2 (06:11→17:50)
[2021-06-20] MEDS: IV D5W 1000ML 1,000 ML IV PRN (06:37)
--- NOTE | 2021-06-20 06:43 | NUR ---
Patient slept well. No significant events this shift. in no respiratory distress. Safety measures continued. Call light within reach.
[2021-06-20 06:47] LABS: HEMATOCRIT 35.3 % (36.7-47.1); MEAN CORPUSCULAR HEMOGLOBIN 27.6 uug (23.8-33.4); MEAN CORPUSCULAR VOLUME 82.2 fL (73.0-96.2); PLATELET COUNT (AUTO) 211 K/uL (152-348)
[2021-06-20 07:08] LABS: CARBON DIOXIDE 28 mmol/L (21-32); CHLORIDE 108 mmol/L (98-107); CREATININE 1.4 mg/dL (0.6-1.3); GLUCOSE 136 mg/dL (74-106); MAGNESIUM 1.8 mg/dL (1.8-2.4); POTASSIUM 5.2 mmol/L (3.5-5.1); UREA NITROGEN, BLOOD 39 mg/dL (7-18)
[2021-06-20 08:00] VITALS: BP 142/61
[2021-06-20] MEDS: ASPIRIN EC 81 MG TABLET.DR PO SCH (08:30)
[2021-06-20] MEDS: DONEPEZIL 10 MG TABLET PO SCH (08:30)
[2021-06-20] MEDS: TAMSULOSIN HCL 0.4 MG CAP.SR.24H PO SCH ×2 (08:35→17:14)
[2021-06-20] MEDS: FINASTERIDE 5 MG TABLET PO SCH (08:36)
[2021-06-20] MEDS: CLOPIDOGREL 75 MG TABLET PO SCH (08:36)
[2021-06-20] MEDS: MEMANTINE HCL 5 MG TABLET PO SCH (08:36)
--- NOTE | 2021-06-20 09:00 | NUR ---
RECEIVED PATIENT IN BED AWAKE NON VERBAL HE IS NOTHING BY MOUTH PENDING GT PLACEMENT TODAY NGT IS IN PLACE.ON ROOM AIR WITH NO SHORTNESS OF BREATH NO S/S OF HYPO/HYPERGLYCEMIC REACTIONS AT THIS TIME IVF IN PROGRESS ORDERED WILL [id number] TO OBSERVE.
[2021-06-20] MEDS: CEFAZOLIN 1 G in IV DEXTROSE 5% 50 ML IV SCH ×2 (09:19→21:27)
--- NOTE | 2021-06-20 11:30 | NUR ---
PATIENT PICKED UP BY BED TO OR FOR EGD/PEG PLACEMENT ORDERED PATIENT IS CONFUSED DISORIENTED AND UNABLE TO PARTICIPATE IN DECISIONS CONCERNING HIS CARE
[2021-06-20 13:35] VITALS: BP 137/67
[2021-06-20 16:00] VITALS: BP 124/67
[2021-06-20] MEDS ORDERED: MEMANTINE HCL 5 MG TABLET PEG SCH (17:00)
--- NOTE | 2021-06-20 17:30 | NUR ---
DUE MEDICATIONS GIVEN VIA GT AND FLUSHED WITH H2O ORDERED AND TOLERATED WELL WITH NO N/V AT THIS TIME ABDOMINAL BINDER IS INTACT O2 AT 3L/M BY NASAL CANULA WITH NO SOB NOT IN DISTRESS AT THIS TIME.
[2021-06-20 17:35] VITALS: BP 135/72
--- NOTE | 2021-06-20 19:30 | NUR ---
Received patient in awake lying down in bed. Patient is non-verbal, reacts to name and touch. Becomes agitated when touched. PEG tube in place, patent and intact. NPO, no feedings. On 3L Nasal cannula, saturating 97%. On 1st step mattress, with heels floating. Right upper arm midline patent and intact, running D5W at 50ml/hr. No signs of pain or distress. Bed in the lowest position and bed alarm on. Will continue to monitor.
[2021-06-20 20:00] VITALS: BP 123/81
[2021-06-20] MEDS: ATORVASTATIN 20 MG TABLET PEG SCH (22:28)
[2021-06-21] MEDS: BLOOD SUGAR DIAGNOSTIC 1 EACH STRIP VI SCH ×4 (00:53→18:11)
[2021-06-21 04:00] VITALS: BP 120/72
[2021-06-21] MEDS: PANTOPRAZOLE ORAL SUSPENSION 40 MG SUSPDR.PKT GT SCH (05:22)
[2021-06-21] MEDS: IV D5W 1000ML 1,000 ML IV PRN (05:25)
[2021-06-21] MEDS: INSULIN REGULAR, HUMAN 300 UNIT/3 ML VIAL SQ PRN ×2 (05:47→13:06)
[2021-06-21 06:21] LABS: HEMATOCRIT 34.3 % (36.7-47.1); MEAN CORPUSCULAR HEMOGLOBIN 27.9 uug (23.8-33.4); MEAN CORPUSCULAR VOLUME 81.7 fL (73.0-96.2); PLATELET COUNT (AUTO) 216 K/uL (152-348)
[2021-06-21 06:44] LABS: CARBON DIOXIDE 25 mmol/L (21-32); CHLORIDE 104 mmol/L (98-107); CREATININE 1.4 mg/dL (0.6-1.3); GLUCOSE 163 mg/dL (74-106); MAGNESIUM 1.6 mg/dL (1.8-2.4); POTASSIUM 4.2 mmol/L (3.5-5.1); UREA NITROGEN, BLOOD 30 mg/dL (7-18)
--- NOTE | 2021-06-21 07:09 | NUR ---
Patient slept soundly. VSS throughout the night. All need anticipated for and met. Will endorse to day shift.
--- NOTE | 2021-06-21 08:00 | NUR ---
Pt received in his bed, resting, appears comfortable. Nasal canula at 3lpm present. Non-verbal, does not respond to name. No agitation. GT tube site is under abdominal binder, intact. Waiting for the orders for the feeding. Side rails are up, no distress noted. Pt is NPO. Midline is intact, IV fluids are running.
--- NOTE | 2021-06-21 10:00 | NUR ---
No residual in GT tube. GT was flushed with 200 ml water. Pt tolerated well.
[2021-06-21] MEDS: FINASTERIDE 5 MG TABLET PEG SCH (11:00)
[2021-06-21] MEDS: CEFAZOLIN 1 G in IV DEXTROSE 5% 50 ML IV SCH ×2 (11:00→20:56)
[2021-06-21] MEDS: DONEPEZIL 10 MG TABLET PEG SCH (11:00)
[2021-06-21] MEDS: TAMSULOSIN HCL 0.4 MG CAP.SR.24H PO SCH ×2 (11:00→18:27)
[2021-06-21] MEDS: CLOPIDOGREL 75 MG TABLET PEG SCH (11:00)
[2021-06-21] MEDS: MEMANTINE HCL 10 MG TABLET PEG SCH ×2 (11:00→18:27)
[2021-06-21] MEDS: ASPIRIN 81 MG TAB.CHEW PEG SCH (11:01)
[2021-06-21] MEDS: MAGNESIUM SULFATE/D5W 100 ML IV SCH ×2 (11:50→12:52)
[2021-06-21 12:00] VITALS: BP 110/74
[2021-06-21] MEDS ORDERED: GLUCERNA 1.2 1000ML LIQUID GT PRN (13:00)
--- NOTE | 2021-06-21 13:45 | NUR ---
Pt's GT feeding was started at rate 20cc/hr. Feeding is to be increased to 60cc/hr in 22 hours. REsidual was 5cc. Pt is tolerating well.
--- NOTE | 2021-06-21 14:35 | NUR ---
Pt's feeding was running at 20cc/hr. It was noted to be occluded, no residual noted. Gtube was flushed with 10 cc warm water, feeding is running again
--- NOTE | 2021-06-21 15:00 | NUR ---
Pt is tolerating the feeding, no residual, feeding is increased to 30cc.
[2021-06-21 16:00] VITALS: BP 117/64
--- NOTE | 2021-06-21 16:00 | NUR ---
Pt's gtube was noted to be occluded. No residual. It was back to running after a flush with small amount of warm water. Will continue to monitor.
[2021-06-21 17:40] LABS: *BILIRUBIN,URIN NEGATIVE (NEGATIVE); *BLOOD, URINE 1+ (NEGATIVE); *CLARITY,URINE CLEAR (CLEAR); *COLOR,URINE YELLOW (YELLOW); *KETONES,URINE NEGATIVE (NEGATIVE); *UROBILINOGEN,URINE 0.2 E.U./dl (NORMAL); LEUKOCYTE ESTERASE ,URINE TRACE (NEGATIVE); NITRITE, URINE NEGATIVE (NEGATIVE); PH,URINE 5.5 (5.0-8.0); UGLUCOSE NEGATIVE (NEGATIVE)
[2021-06-21 18:31] LABS: BACTERIA,URINE NONE SEEN /HPF (NONE SEEN); SQUAMOUS EPITHELIAL CELL,UR FEW /HPF (NONE SEEN); WBC,URINE 0-3 /HPF (0-3)
[2021-06-21 18:32] LABS: URIC ACID CRYSTALS,URINE MODERATE /HPF (NONE SEEN)
--- NOTE | 2021-06-21 18:35 | NUR ---
Pt's feeding is running at 35 cc/hr. No residual. Medications are given.
[2021-06-21 20:00] VITALS: BP 149/71
[2021-06-21] MEDS: ATORVASTATIN 20 MG TABLET PEG SCH (20:56)
[2021-06-22] MEDS: BLOOD SUGAR DIAGNOSTIC 1 EACH STRIP VI SCH ×4 (00:57→17:06)
[2021-06-22] MEDS: INSULIN REGULAR, HUMAN 300 UNIT/3 ML VIAL SQ PRN ×4 (00:58→17:07)
[2021-06-22] MEDS: IV D5W 1000ML 1,000 ML IV PRN (03:00)
[2021-06-22 04:00] VITALS: BP 124/72
[2021-06-22] MEDS: PANTOPRAZOLE ORAL SUSPENSION 40 MG SUSPDR.PKT GT SCH (05:43)
[2021-06-22 05:55] LABS: HEMATOCRIT 31.7 % (36.7-47.1); MEAN CORPUSCULAR HEMOGLOBIN 27.7 uug (23.8-33.4); MEAN CORPUSCULAR VOLUME 80.9 fL (73.0-96.2); PLATELET COUNT (AUTO) 190 K/uL (152-348)
[2021-06-22 06:02] LABS: CARBON DIOXIDE 25 mmol/L (21-32); CHLORIDE 100 mmol/L (98-107); CREATININE 1.4 mg/dL (0.6-1.3); GLUCOSE 134 mg/dL (74-106); POTASSIUM 4.3 mmol/L (3.5-5.1); UREA NITROGEN, BLOOD 25 mg/dL (7-18)
--- NOTE | 2021-06-22 06:31 | NUR ---
Pt resting in bed comfortably,open eyes , non verbal.HOB elevated. No acute distress noted. On 3Lpm saturating well Non-verbal.GT tube in place with GTF rate increase to 40cc/hr.Tolerated well. No n/v noted.Midline on right upper arm patent and intact.IVf running well.Fc draining well.Offload both heels.Change and repositioned patient. All needs anticipated and met accordingly.Will endorse to oncoming shift.
[2021-06-22] MEDS: ASPIRIN 81 MG TAB.CHEW PEG SCH (08:22)
[2021-06-22] MEDS: DONEPEZIL 10 MG TABLET PEG SCH (08:22)
[2021-06-22] MEDS: TAMSULOSIN HCL 0.4 MG CAP.SR.24H PO SCH ×2 (08:22→16:40)
[2021-06-22] MEDS: MEMANTINE HCL 10 MG TABLET PEG SCH ×2 (08:22→16:40)
[2021-06-22] MEDS: CLOPIDOGREL 75 MG TABLET PEG SCH (08:22)
[2021-06-22] MEDS: FINASTERIDE 5 MG TABLET PEG SCH (08:22)
[2021-06-22] MEDS: CEFAZOLIN 1 G in IV DEXTROSE 5% 50 ML IV SCH (08:27)
--- NOTE | 2021-06-22 08:55 | NUR ---
Clinical Social Work Note SW spoke with APS worker, Melinda Santana ([phone]) and provided information regarding patient having PEG placement. APS worker inquired about discharge plan. Provided information regarding patient's alert and oriented status. Plan: SW will follow up with APS worker to discuss discharge plan for patient.
[2021-06-22 12:00] VITALS: BP 109/61
--- NOTE | 2021-06-22 15:49 | NUR ---
Clinical Social Work Note SW spoke with APS worker, Melinda Santana ([phone]) and provided an update on patient's discharge. SW informed APS worker that patient's doctor is recommended SNF placement, but daughter has been refusing placement. APS worker stated that she will be looking in to this and speak with daughter. Plan: SW will continue to coordinate with APS worker.
[2021-06-22 16:00] VITALS: BP 136/70
--- NOTE | 2021-06-22 17:00 | NUR ---
new orders for discharge, [facility] called and made aware, all paperwork completed, patient unable to sign due to cognitive issue 2 rns signed paperwork, patient to be picked up by [facility]. Patient is currently on droplet precautions due to rapid COVID + test.
--- NOTE | 2021-06-22 18:24 | NUR ---
[facility] called report given to jean pierre Z[facility]
--- NOTE | 2021-06-22 19:25 | NUR ---
patient picked up by [facility] ambulance, all belongings given to paramedics, patient stable at discharge.
== END 2021-06-22 19:15 | DRG 682 ==
LOC: ER 15:08 → CCU 19:38 → TELE3 06-12 19:12 → MEDSURG3 06-14 15:30
PROVIDERS: ADMIT Nurse Practitioner Acute Care; ATTEND Nurse Practitioner Family
PROC: 05H533Z Insertion of Infusion Device into Right Subclavian Vein, Percutaneous Approach (ICD-10-PCS; principal; 2021-06-11)
PROC: B546ZZA Ultrasonography of Right Subclavian Vein, Guidance (ICD-10-PCS; 2021-06-11)
PROC: 0DH63UZ Insertion of Feeding Device into Stomach, Percutaneous Approach (ICD-10-PCS; 2021-06-20)
DX: N17.0 Acute kidney failure with tubular necrosis (principal); G93.41 Metabolic encephalopathy; U07.1 COVID-19; E87.0 Hyperosmolality and hypernatremia; N39.0 Urinary tract infection, site not specified; D68.69 Other thrombophilia; E86.0 Dehydration; B96.1 Klebsiella pneumoniae [K. pneumoniae] as the cause of diseases classified elsewhere; D75.1 Secondary polycythemia; E78.5 Hyperlipidemia, unspecified; K21.9 Gastro-esophageal reflux disease without esophagitis; R62.7 Adult failure to thrive; R13.10 Dysphagia, unspecified; E86.1 Hypovolemia; G30.9 Alzheimer's disease, unspecified; F02.80 Dementia in other diseases classified elsewhere, unspecified severity, without behavioral disturbance, psychotic disturbance, mood disturbance, and anxiety; N40.0 Benign prostatic hyperplasia without lower urinary tract symptoms; Z74.09 Other reduced mobility; I25.10 Atherosclerotic heart disease of native coronary artery without angina pectoris; K44.9 Diaphragmatic hernia without obstruction or gangrene; E11.65 Type 2 diabetes mellitus with hyperglycemia; I12.9 Hypertensive chronic kidney disease with stage 1 through stage 4 chronic kidney disease, or unspecified chronic kidney disease; N18.9 Chronic kidney disease, unspecified; E11.22 Type 2 diabetes mellitus with diabetic chronic kidney disease
CPT/HCPCS: 36415; 70030-TC; 70450; 71045; 74018; 76770; 83605; 83735; 83930; 83935; 83970; 84100; 84155; 84156; 84165; 84300; 84443; 84550; 85025; 85730; 87040; 87077; 87086; 87400; 93005; 93307; 97161; A4217; A4663; A6209; C9113; G0378; J0690; J0696; J1644; J1815; J3475; J3490; J7030; J7040; J7042; J7060; J7070